=== PATIENT | female | born 1975 | race African-American/Black ===

== ENCOUNTER 2019-01-25 10:29 | Emergency (ER) | payer SELFPAY ==
[~2019-01-25] VITALS: Ht 157.5 cm; Wt 82.1 kg
[~2019-01-25 10:29] MED LIST: ALBUTEROL SULF8.5 GM INH; AZITHROMYCIN250 MG ORAL; CYCLOBENZAPRINE10 MG ORAL; IBUPROFEN600 MG ORAL; NORCO 5-325 TA1 EACH ORAL; PERCOCET 5-3251 EACH ORAL
[2019-01-25 10:54] VITALS: BP 125/76
--- NOTE | 2019-01-25 10:54 | NUR ---
ED Nurse Note: PT FROM HOME CAME IN DUE MEDIAL ABD. PAIN WITH NAUSEA AND VOMITING SINCE 01/22/19. DENIES DRUG USE. PT STATES THE PAIN MAKES HER URINATES MORE OFTEN. AAO X4, AMBULATORY WITH NON LABORED BREATHING.
--- NOTE | 2019-01-25 11:05 | Emergency Room Report ---
History of Present Illness General Chief Complaint: Vomiting Source: Patient Present Illness HPI The patient presents with nausea vomiting and abdominal pain since January 22. The pain is epigastric. She is also had intermittent constipation and recently diarrhea. She was seen at a another emergency department and no labs were done. She cannot keep anything down at this time. She has chills but no documented fever. Last period was normal for her and she does not believe she is . Pain does not radiate. She tried taking BC powder but this came back up today. She is having trouble keeping down water. There is no coffee grounds or hematemesis. No melena. The patient is under a lot of stress at this time. No sore throat, chest pain, palpitations, dysuria, shortness of breath, joint pain, rashes, depression, visual changes, dizziness, headache. History of asthma no wheezing. 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[employer], her own business Last Menstrual Period: 01/19/19 Now: No Reviewed Nursing Documentation: PMH: Agreed; PSxH: Agreed Nursing Documentation-PMH Past Medical History: No History, Except For Hx Asthma: No Review of Systems All Other Systems: negative except mentioned in HPI Physical Exam Vital Signs Date Time Temp Pulse Resp B/P (MAP) Pulse Ox O2 Delivery O2 Flow Rate FiO2 01/25/19 10:44 98.4 83 16 110/81 (91) 100 Room Air Sp02 EP Interpretation: reviewed, normal General Appearance: well appearing, no apparent distress, GCS 15 Head: normocephalic, atraumatic Eyes: bilateral eye normal inspection, bilateral eye PERRL, bilateral eye EOMI ENT: moist mucus membranes Neck: full range of motion, supple Respiratory: lungs clear, normal breath sounds Cardiovascular #1: regular rate, rhythm Cardiovascular #2: 2+ radial (R) Gastrointestinal: normal inspection, normal bowel sounds, non tender, no mass, non-distended, no guarding, no rebound Genitourinary: no CVA tenderness Musculoskeletal: back normal, gait/station normal, normal range of motion Neurologic: alert, oriented x3, grossly normal Psychiatric: mood/affect normal Skin: no rash Medical Decision Making Diagnostic Impression: Primary Impression: Epigastric pain Additional Impressions: Vomiting Qualified Codes: R11.2 - Nausea with vomiting, unspecified Pyuria ER Course Patient presents with epigastric pain and vomiting for 4 days. Differential includes gastritis, gastroenteritis, pancreatitis, gallbladder disease amongst others. Evaluation with labs, chest x-ray and abdominal film. Treatment with IV hydration, Reglan, Benadryl, Pepcid and Mylanta. Labs with normal CBC and CMP (potassium minimally elevated). Chest x-ray and abdominal film unremarkable. Continued pain and nausea with occasional vomiting. Treated with repeat Reglan and morphine. Tolerating oral intake. Still with nausea and pain. Pain is decreased significantly. Percocet given orally. Offered patient admission for observation and continued pain control. She elects to go home. No medical emergency at this time. Abdomen is soft. Improved with treatment. Patient stable for outpatient observation and treatment. Laboratory Tests Test 01/25/19 10:40 01/25/19 11:10 Urine Color Pale yellow Urine Appearance Clear Urine pH 7 (4.5-8.0) Urine Specific [place] 1.010 (1.005-1.035) Urine Protein Negative (NEGATIVE) Urine Glucose (UA) Negative (NEGATIVE) Urine Ketones Negative (NEGATIVE) Urine Blood 4+ (NEGATIVE) H Urine Nitrite Negative (NEGATIVE) Urine Bilirubin Negative (NEGATIVE) Urine Urobilinogen Normal MG/DL (0.0-1.0) Urine Leukocyte Esterase Negative (NEGATIVE) Urine RBC 5-10 /HPF (0 - 2) H Urine WBC 0-2 /HPF (0 - 2) Urine Squamous Epithelial Cells Few /LPF (NONE/OCC) Urine Bacteria Few /HPF (NONE) Urine HCG, Qualitative Negative (NEGATIVE) White Blood Count 10.2 K/UL (4.8-10.8) Red Blood Count 4.60 M/UL (4.20-5.40) Hemoglobin 14.0 G/DL (12.0-16.0) Hematocrit 41.8 % (37.0-47.0) Mean Corpuscular Volume 91 FL (80-99) Mean Corpuscular Hemoglobin 30.5 PG (27.0-31.0) Mean Corpuscular Hemoglobin Concent 33.6 G/DL (32.0-36.0) Red Cell Distribution Width 12.3 % (11.6-14.8) Platelet Count 263 K/UL (150-450) Mean Platelet Volume 6.7 FL (6.5-10.1) Neutrophils (%) (Auto) 51.3 % (45.0-75.0) Lymphocytes (%) (Auto) 39.3 % (20.0-45.0) Monocytes (%) (Auto) 6.3 % (1.0-10.0) Eosinophils (%) (Auto) 2.0 % (0.0-3.0) Basophils (%) (Auto) 1.0 % (0.0-2.0) Prothrombin Time 10.1 SEC (9.30-11.50) Prothrombin Time INR 0.9 (0.9-1.1) PTT 28 SEC (23-33) Sodium Level 137 MMOL/L (136-145) Potassium Level 5.5 MMOL/L (3.5-5.1) H Chloride Level 103 MMOL/L (98-107) Carbon Dioxide Level 27 MMOL/L (21-32) Anion Gap 7 mmol/L (5-15) Blood Urea Nitrogen 7 mg/dL (7-18) Creatinine 0.9 MG/DL (0.55-1.30) Estimate Glomerular Filtration Rate > 60 mL/min (>60) Glucose Level 93 MG/DL (74-106) Calcium Level 9.0 MG/DL (8.5-10.1) Total Bilirubin 0.5 MG/DL (0.2-1.0) Aspartate Amino Transferase (AST) 46 U/L (15-37) H Alanine Aminotransferase (ALT) 43 U/L (12-78) Alkaline Phosphatase 34 U/L (46-116) L Total Protein 7.3 G/DL (6.4-8.2) Albumin 3.8 G/DL (3.4-5.0) Globulin 3.5 g/dL Albumin/Globulin Ratio 1.1 (1.0-2.7) Lipase 177 U/L (73-393) Chest X-Ray Diagnostic Results Chest X-Ray Diagnostic Results : Chest X-Ray Ordered: Yes # of Views/Limited/Complete: 1 View Indication: Other EP Interpretation: Yes Interpretation: no consolidation, no effusion, no pneumothorax Impression: No acute disease Electronically Signed by: Electronically signed by Otis Webber MD Other X-Ray Diagnostic Results Other X-Ray Diagnostic Results : X-Ray ordered: Abdomen # of Views/Limited Vs Complete: 1 View Indication: Pain EP Interpretation: Yes Interpretation: nonspecific bowel gas, no sbo, other - No masses Impression: No acute disease Electronically Signed by: Electronically signed by Otis Webber MD Last Vital Signs Date Time Temp Pulse Resp B/P (MAP) Pulse Ox O2 Delivery O2 Flow Rate FiO2 01/25/19 15:12 98.6 82 16 129/74 97 Room Air Status: improved Disposition: HOME, SELF-CARE Condition: Improved Scripts Hydrocodone Bit/Acetaminophen 5-325* (NORCO 5-325*) 1 Each Tablet 1 TAB ORAL Q6H PRN for For Pain, #8 TAB 0 Refills Prov: Otis Webber MD 01/25/19 Promethazine HCl (Promethegan) 25 Mg Supp.rect 25 MG RECTAL Q8HR PRN for Nausea & Vomiting, #6 SUPP Prov: Otis Webber MD 01/25/19 Promethazine Hcl* (PHENERGAN*) 25 Mg Tablet 25 MG ORAL Q8HR, #10 TAB 0 Refills Prov: Otis Webber MD 01/25/19 Famotidine (FAMOTIDINE) 20 Mg Tablet 20 MG ORAL DAILY, #30 TAB 0 Refills Prov: Otis Webber MD 01/25/19 Acetaminophen (Tylenol) 325 Mg Tablet 650 MG ORAL Q6H PRN for Prn Pain/Headache/Temp > 101, #20 TAB 0 Refills Prov: Otis Webber MD 01/25/19 Otis Webber MD Jan 25, 2019 11:05
[2019-01-25] MEDS ORDERED: DiphenhydrAMINE 50mg/ml Inj IVP ONE (11:15)
[2019-01-25] MEDS ORDERED: Metoclopramide 10mg/2ml Inj IVP ONE ×2 (11:15→14:45)
[2019-01-25] MEDS ORDERED: Mylanta II UD 30ml ORAL ONE (11:15)
--- NOTE | 2019-01-25 11:21 | NUR ---
ED Nurse Note: COLLECTED BLOOD/URINE THEN SENT. 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
[2019-01-25 11:22] LABS: APPEARANCE,URINE CLEAR; BILIRUBIN, URINE NEGATIVE (NEGATIVE); COLOR,URINE PALE YELLOW; GLUCOSE, URINE (UA) NEGATIVE (NEGATIVE); KETONES,URINE NEGATIVE (NEGATIVE); LEUKOCYTE ESTERASE ,URINE NEGATIVE (NEGATIVE); NITRITE,URINE NEGATIVE (NEGATIVE); PH,URINE 7 (4.5-8.0); PROTEIN,URINE NEGATIVE (NEGATIVE); UROBILINOGEN,URINE NORMAL MG/DL (0.0-1.0)
[2019-01-25 11:22] LABS: HEMATOCRIT 41.8 % (37.0-47.0); LYMPHOCYTES % (AUTO) 39.3 % (20.0-45.0); MEAN CORPUSCULAR VOLUME 91 FL (80-99); MONOCYTES % (AUTO) 6.3 % (1.0-10.0); NEUTROPHILS % (AUTO) 51.3 % (45.0-75.0); PLATELET COUNT 263 K/UL (150-450); RED CELL DISTRIBUTION WIDTH 12.3 % (11.6-14.8); WHITE BLOOD COUNT 10.2 K/UL (4.8-10.8)
[2019-01-25 11:32] LABS: INR 0.9 (0.9-1.1)
[2019-01-25 11:36] LABS: ANION GAP 7 mmol/L (5-15); BLOOD UREA NITROGEN 7 mg/dL (7-18); CARBON DIOXIDE 27 MMOL/L (21-32); CHLORIDE 103 MMOL/L (98-107); CREATININE 0.9 MG/DL (0.55-1.30); POTASSIUM 5.5 MMOL/L (3.5-5.1); SODIUM 137 MMOL/L (136-145)
[2019-01-25 11:40] LABS: ALANINE AMINOTRANSFERASE 43 U/L (12-78); ALBUMIN 3.8 G/DL (3.4-5.0); ALBUMIN/GLOBULIN RATIO 1.1 (1.0-2.7); ALKALINE PHOSPHATASE 34 U/L (46-116); ASPARTATE AMINO TRANSFERASE 46 U/L (15-37); BILIRUBIN,TOTAL 0.5 MG/DL (0.2-1.0)
--- NOTE | 2019-01-25 12:02 | Diagnostic Imaging Report ---
Indication: Abdominal pain Technique: Supine view of the abdomen Comparison: Lithograph Press Feeder image from CT scan 04/20/2014 Findings: Bowel gas pattern is unremarkable. No unusual masses or calcifications. Beads are seen surrounding the lower chest/upper abdomen; per patient unable to remove. Impression: No acute process
--- NOTE | 2019-01-25 12:02 | Diagnostic Imaging Report ---
Indication: Lower chest pain Technique: One view of the chest Comparison: none Findings: Lungs and pleural spaces are clear. Heart size is normal. Impression: No acute process
[2019-01-25] MEDS ORDERED: Morphine Sulfate 4mg/ml Inj (IV USE ONLY) IVP ONE (12:45)
[2019-01-25 13:10] VITALS: BP 135/79
[2019-01-25] MEDS ORDERED: TYLENOL325 MG ORAL (14:34)
[2019-01-25] MEDS ORDERED: PHENERGAN SUPP25 MG RECTAL (14:34)
[2019-01-25] MEDS ORDERED: PHENERGAN25 M1 ORAL (14:34)
[2019-01-25] MEDS ORDERED: FAMOTIDINE20 MG ORAL (14:34)
[2019-01-25] MEDS ORDERED: NORCO 5-325 TA1 EACH ORAL (15:03)
[2019-01-25 15:12] VITALS: BP 129/74
--- NOTE | 2019-01-25 15:12 | NUR ---
ER DISCHARGE NOTE: Patient is cleared to be discharged per ERMD, pt is aox4, on room air, with stable vital signs. pt was given dc and prescription instructions, pt was able to verbalize understanding, pt id band and iv site removed without complications. pt is able to ambulate with steady gait. pt took all belongings and left with her family.
[2019-01-25] MEDS ORDERED: oxyCODONE HCL/Acetaminophen 5/325mg ORAL ONE (15:15)
== END 2019-01-25 15:12 | disposition home or self-care (01) ==
LOC: EMR 11:28
DX: R10.13 Epigastric pain (principal); R11.2 Nausea with vomiting, unspecified; R82.81 Pyuria; M54.30 Sciatica, unspecified side
CPT/HCPCS: 36415; 71045; 74018; 80053; 81003; 81025; 83690; 85025; 85610; 85730; 96361; 96374; 96375; 96376; 99284; J1200; J2270; J2405; J2765; S0028; J7030

== ENCOUNTER 2020-02-11 17:24 | Emergency (ER) | payer SELFPAY ==
[~2020-02-11] VITALS: Ht 157.5 cm; Wt 69.4 kg
[~2020-02-11 17:24] MED LIST changes: +FAMOTIDINE20 MG ORAL; +PHENERGAN SUPP25 MG RECTAL; +PHENERGAN25 M1 ORAL; +TYLENOL325 MG ORAL
--- NOTE | 2020-02-11 17:40 | NUR ---
ED Nurse Note: Pt walked in from home c/o left sided CP that radiates to neck, upper back and shoulders. Pain reported since yesterday. Respiraitons even and unlabored on room air. Vitals stable as documented. A+Ox4, speaking in complete sentences.
[2020-02-11 17:45] VITALS: BP 123/79
[2020-02-11] MEDS ORDERED: Methocarbamol 750mg tab ORAL ONE (18:00)
[2020-02-11] MEDS ORDERED: Ketorolac 30mg Inj IV ONE (18:00)
--- NOTE | 2020-02-11 18:54 | Emergency Room Report ---
History of Present Illness General Chief Complaint: Chest Pain Source: Patient Present Illness HPI 44-year-old female with tobacco smoking no other past medical history here complaining of sudden onset of left-sided chest pain with radiation to left- sided neck and arm while working yesterday. Patient reports that she is at her status and often gets tension in the left side of the neck. Denies any fever and chills, headache and dizziness. Denies any abdominal pain, nausea vomiting, cough and congestion. Denies any diarrhea. Complains of shortness of breath. Has not taken medication for symptom relief. Denies all other drug use and alcohol intake. Reports that the pain starts in front of her chest and radiates to arm and upper back. Denies . Denies generalized or unilateral weakness. Allergies: Coded Allergies: No Known Allergies (Verified , 02/03/07) COVID-19 Screening Contact w/high risk pt: No Experienced COVID-19 symptoms?: No COVID-19 Testing performed RN SHIFT MGR: No Patient History Past Medical History: see triage record Past Surgical History: none Pertinent Family History: none Now: No Immunizations: UTD Reviewed Nursing Documentation: PMH: Agreed; PSxH: Agreed Nursing Documentation-PMH Past Medical History: No History, Except For Hx Asthma: No Review of Systems All Other Systems: negative except mentioned in HPI Physical Exam Vital Signs Date Time Temp Pulse Resp B/P (MAP) Pulse Ox O2 Delivery O2 Flow Rate FiO2 02/11/20 17:32 99.0 73 17 114/73 (87) 99 Room Air Sp02 EP Interpretation: reviewed, normal General Appearance: no apparent distress, alert, GCS 15, non-toxic Head: normocephalic, atraumatic Eyes: bilateral eye normal inspection, bilateral eye PERRL ENT: hearing grossly normal, normal pharynx, no angioedema, normal voice Neck: full range of motion, supple/symm/no masses Respiratory: chest non-tender, lungs clear, normal breath sounds, no rhonchi, speaking full sentences Cardiovascular #1: regular rate, rhythm, no edema Cardiovascular #2: 2+ carotid (R), 2+ carotid (L), 2+ radial (R), 2+ radial (L), 2+ dorsalis pedis (R), 2+ dorsalis pedis (L) Gastrointestinal: normal bowel sounds, non tender, soft, non-distended, no guarding, no rebound Rectal: deferred Genitourinary: no CVA tenderness Musculoskeletal: back normal, no calf tenderness Neurologic: alert, motor strength/tone normal, oriented x3, sensory intact, responsive, speech normal Psychiatric: judgement/insight normal, memory normal, mood/affect normal, no suicidal/homicidal ideation Skin: no rash Lymphatic: normal inspection, no adenopathy Medical Decision Making PA Attestation All my diagnosis and treatment plans were reviewed ad discussed with my supervising physician Dr. Hagen Diagnostic Impression: Primary Impression: Chest pain Additional Impression: Thoracic myofascial strain ER Course 44-year-old female with tobacco smoking no other past medical history here complaining of sudden onset of left-sided chest pain with radiation to left- sided neck and arm while working yesterday. Patient reports that she is at her status and often gets tension in the left side of the neck. Denies any fever and chills, headache and dizziness. Denies any abdominal pain, nausea vomiting, cough and congestion. Denies any diarrhea. Complains of shortness of breath. Has not taken medication for symptom relief. Denies all other drug use and alcohol intake. Reports that the pain starts in front of her chest and radiates to arm and upper back. Denies . Denies generalized or unilateral weakness. Ddx considered but are not limited to: FL, Angina, COPD, GERD, Vital signs: are WNL, pt. is afebrile H&PE are most consistent with chest pain, thoracic strain ORDERS: EKG, Chest XR, cardiac labs, Pepcid, Motrin, Robaxin ED INTERVENTIONS: NS bolus, Toradol, Robaxin DISCHARGE: At this time pt. is stable for d/c to home. Will provide printed patient care instructions, and any necessary prescriptions. Care plan and follow up instructions have been discussed with the patient prior to discharge. Advised patient to avoid eating spicy acidic food, take medication as directed, stress can be contributing to her chest pain especially the patient reports that pain is worse when laying down avoid smoking, follow-up with delivery helper. If worsening symptoms return to the emergency room EKG Diagnostic Results Rate: normal Rhythm: NSR ST Segments: no acute changes Other Impression No acute ST changes ASA given to the pt in ED: No Chest X-Ray Diagnostic Results Chest X-Ray Diagnostic Results : Chest X-Ray Ordered: Yes # of Views/Limited/Complete: 1 View Indication: Chest Pain EP Interpretation: Yes PA Xray: Interpretation reviewed, by supervising MD, and agrees with findings. Interpretation: no consolidation, no effusion, no pneumothorax, no acute cardiopulmonary disease Impression: No acute disease Electronically Signed by: Lianne Landis PA-C CT/MRI/US Diagnostic Results CT/MRI/US Diagnostic Results : Imaging Test Ordered: CTA chest Impression COMPARISON: No relevant prior studies available. FINDINGS: Lungs: No pulmonary embolus. No consolidation. Pleural space: Unremarkable. No pneumothorax. No effusion. Heart: No cardiomegaly. No pericardial effusion. Bones/joints: No acute fracture. Soft tissues: Unremarkable. Vasculature: Unremarkable. No thoracic aortic aneurysm. Lymph nodes: No enlarged lymph nodes. IMPRESSION: No pulmonary embolus. Last Vital Signs Date Time Temp Pulse Resp B/P (MAP) Pulse Ox O2 Delivery O2 Flow Rate FiO2 02/11/20 17:45 79 17 Room Air 02/11/20 17:45 98.8 123/79 98 Disposition: HOME, SELF-CARE Condition: Stable Patient Instructions: Heartburn, Nonspecific Chest Pain, Thoracic Strain, Quty-to-Rudy Additional Instructions: Advised patient to avoid eating spicy acidic food, take medication as directed, stress can be contributing to her chest pain especially the patient reports that pain is worse when laying down avoid smoking, follow-up with delivery helper. If worsening symptoms return to the emergency room Lianne Villafuerte Feb 11, 2020 18:54
[2020-02-11 18:56] LABS: APPEARANCE,URINE SLIGHTLY CLOUDY; BILIRUBIN, URINE NEGATIVE (NEGATIVE); EOSINOPHILS % (AUTO) 2.2 % (0.0-3.0); GLUCOSE, URINE (UA) NEGATIVE (NEGATIVE); HEMATOCRIT 41.8 % (37.0-47.0); KETONES,URINE NEGATIVE (NEGATIVE); LEUKOCYTE ESTERASE ,URINE NEGATIVE (NEGATIVE); LYMPHOCYTES % (AUTO) 40.3 % (20.0-45.0); MEAN CORPUSCULAR VOLUME 94 FL (80-99); NEUTROPHILS % (AUTO) 49.5 % (45.0-75.0); NITRITE,URINE NEGATIVE (NEGATIVE); PH,URINE 8 (4.5-8.0); PLATELET COUNT 210 K/UL (150-450); PROTEIN,URINE NEGATIVE (NEGATIVE); RED BLOOD COUNT 4.47 M/UL (4.20-5.40); RED CELL DISTRIBUTION WIDTH 12.7 % (11.6-14.8); UROBILINOGEN,URINE NORMAL MG/DL (0.0-1.0); WHITE BLOOD COUNT 9.4 K/UL (4.8-10.8)
[2020-02-11 19:04] LABS: CREATININE 1.2 MG/DL (0.55-1.30); POTASSIUM 4.1 MMOL/L (3.5-5.1)
--- NOTE | 2020-02-11 19:08 | NUR ---
HAND-OFF: Report given to LAINA Sagastume. Pt in stable condition; plan of care endorsed.
[2020-02-11 19:10] LABS: ALBUMIN 3.8 G/DL (3.4-5.0); ALBUMIN/GLOBULIN RATIO 1.2 (1.0-2.7); BILIRUBIN,TOTAL 0.5 MG/DL (0.2-1.0)
--- NOTE | 2020-02-11 19:10 | NUR ---
ED Nurse Note: Report received from LAINA Peres. Patient is resting in bed, NAD.
[2020-02-11 19:12] LABS: COLOR,URINE YELLOW
[2020-02-11 19:30] VITALS: BP 125/88
--- NOTE | 2020-02-11 19:30 | NUR ---
ED Nurse Note: Patient is c/o chest pain still at this time although not as severe as ED arrival. made aware.
[2020-02-11] MEDS ORDERED: Omnipaque 350 100ml vial INJ PRN (19:45)
[2020-02-11] MEDS ORDERED: Morphine Sulfate 2mg/ml Inj(IV/IM USE ONLY) IVP ONE (20:00)
--- NOTE | 2020-02-11 20:26 | Diagnostic Imaging Report ---
EXAM: CT Chest With Intravenous Contrast CLINICAL HISTORY: PE TECHNIQUE: Axial computed tomography images of the chest with intravenous contrast. CTDI is 19.7 mGy and DLP is 188.3 mGy-cm. One or more of the following dose reduction techniques were used: automated exposure control, adjustment of the mA and/or kV according to patient size, use of iterative reconstruction technique. MIP reconstructed images were created and reviewed. COMPARISON: No relevant prior studies available. FINDINGS: Lungs: No pulmonary embolus. No consolidation. Pleural space: Unremarkable. No pneumothorax. No effusion. Heart: No cardiomegaly. No pericardial effusion. Bones/joints: No acute fracture. Soft tissues: Unremarkable. Vasculature: Unremarkable. No thoracic aortic aneurysm. Lymph nodes: No enlarged lymph nodes. IMPRESSION: No pulmonary embolus.
--- NOTE | 2020-02-11 20:30 | NUR ---
ED Nurse Note: Decreased pain noted at this time. NAD.
[2020-02-11] MEDS ORDERED: FAMOTIDINE20 MG ORAL (20:52)
[2020-02-11] MEDS ORDERED: IBUPROFEN600 M1 ORAL (20:52)
[2020-02-11] MEDS ORDERED: ROBAXIN-500MG ORAL (20:52)
[2020-02-11 21:00] VITALS: BP 121/85
--- NOTE | 2020-02-11 21:00 | NUR ---
ER DISCHARGE NOTE: Patient is cleared to be discharged per ERMD, pt is aox4, on room air, with stable vital signs. pt was given dc and prescription instructions, pt was able to verbalize understanding, pt id band and iv site removed without complications. pt is able to ambulate with steady gait. pt took all belongings.
--- NOTE | 2020-02-12 15:18 | Diagnostic Imaging Report ---
Indication: Chest pain Technique: One view of the chest Comparison: 01/25/2019 Findings: Lungs and pleural spaces are clear. Heart size is normal. No significant change Impression: No acute process
== END 2020-02-11 21:00 | disposition home or self-care (01) ==
LOC: EMR 17:45
DX: R07.9 Chest pain, unspecified (principal); S29.012A Strain of muscle and tendon of back wall of thorax, initial encounter; X58.XXXA Exposure to other specified factors, initial encounter; Y92.9 Unspecified place or not applicable
CPT/HCPCS: 36415; 71045; 71275; 80053; 80307; 81003; 81025; 83880; 84484; 85025; 85379; 93005; 96361; 96374; 96375; 99284; J1885; J2270; J7030; Q9967